=== PATIENT | female | born 1960 | race Caucasian/White ===

== ENCOUNTER 2018-11-17 17:20 | Emergency (ER) | payer BC ==
[2018-11-17] MEDS ORDERED: ONDANSETRON HCL IV 4 MG/2 ML VIAL IV ONE (17:35)
[2018-11-17] MEDS ORDERED: 0.9 % SODIUM CHLORIDE 1,000 ML BAG IV ONE (17:35)
[2018-11-17] MEDS ORDERED: SUCRALFATE 1 G/10 ML UD PO ONE (17:36)
--- NOTE | 2018-11-17 17:41 | Emergency Department Record ---
History of Present Illness - General Chief Complaint: Abdominal Pain Stated Complaint: ABD PAIN Time Seen by Provider: 11/17/18 17:28 Source: Patient Mode of Arrival: Ambulatory Limitations: No limitations - History of Present Illness Initial Comments: The patient is here due to abdominal pain for 4-5 days. The pain has been getting progressively worse over the course of the last few days. She describes it as a mid abdominal to epigastric sharp stabbing pain that is intermittent and does resolve at times. There is no nausea, vomiting, or fevers but the patient is having some loose stools at times. It does not seem to be related to eating or bending and the patient denies any alcohol use. She has had a Choly, APPY, and MONSE in the past. The patient did go to an UC yesterday and was told if worse to go to the ER. MD Complaint: Abdominal pain Onset/Timin -: Days(s) Location: Epigastric, Periumbilical Radiation: Back Severity: Mild Severity scale (1-10): 4 Quality: Sharp Consistency: Intermittent Improves With: Nothing Worsens With: Nothing Associated Symptoms: Denies other symptoms - Related Data Patient : No Home Medications Medication Instructions Recorded Confirmed Last Taken Cinnamon Bark [Cinnamon] 500 mg PO DAILY 11/17/18 11/17/18 11/17/18 Citalopram Hydrobromide [Celexa] 20 mg PO DAILY 11/17/18 11/17/18 11/17/18 Dicyclomine HCl 20 mg PO QID 11/17/18 11/17/18 11/17/18 Esomeprazole Magnesium 20 mg PO DAILY 11/17/18 11/17/18 11/17/18 Estradiol 1 mg PO DAILY 11/17/18 11/17/18 11/17/18 Previous Rx's Medication Instructions Recorded Sucralfate [Carafate] 1 gm PO QID #28 tablet 11/17/18 Allergies Allergy/AdvReac Type Severity Reaction Status Date / Time No Known Drug Allergies Allergy Verified 11/17/18 17:29 Travel Screening - Travel/Exposure Within Last 30 Days Have you traveled within the last 30 days?: No Review of Systems Constitutional: Denies: Chills, Fever Eyes: Denies: Eye discharge ENT: Denies: Congestion, Throat pain Respiratory: Denies: Dyspnea Cardiovascular: Denies: Chest pain Endocrine: Denies: Fatigue Gastrointestinal: Reports: Abdominal pain. Denies: Diarrhea, Nausea, Vomiting Genitourinary: Reports: Incontinence. Denies: Dysuria Musculoskeletal: Denies: Arthralgia, Back pain Neurological: Denies: Abnormal gait Past Medical History - SOCIAL HISTORY Smoking Status: Never smoker Alcohol Use: None Drug Use: None - RESPIRATORY Hx Respiratory Disorders: No - CARDIOVASCULAR Hx Cardio Disorders: No - NEURO Hx Neuro Disorders: No - GI Hx GI Disorders: Yes Hx Reflux: Yes - Hx Genitourinary Disorders: No - ENDOCRINE Hx Endocrine Disorders: No - MUSCULOSKELETAL Hx Musculoskeletal Disorders: No - PSYCH Hx Psych Problems: Yes Hx Anxiety: Yes Hx Depression: Yes - HEMATOLOGY/ONCOLOGY Hx Hematology/Oncology Disorders: No Family Medical History Any Significant Family History?: Yes Hx Diabetes: Mother Hx Heart Disease: Father Physical Exam - General General Appearance: Alert, Oriented x3, Cooperative, No acute distress - Head Head exam: Atraumatic, Normocephalic, Normal inspection - Eye Eye exam: Normal appearance, PERRL - ENT Throat exam: Normal inspection. negative: Tonsillar erythema, Tonsillar exudate - Neck Neck exam: Normal inspection, Full ROM. negative: Tenderness - Respiratory Respiratory exam: Normal lung sounds bilaterally. negative: Respiratory distress - Cardiovascular Cardiovascular Exam: Regular rate, Normal rhythm, Normal heart sounds - GI/Abdominal GI/Abdominal exam: Soft, Tenderness (Thee is mild mid abdominal tenderness to palpation. ). negative: Normal bowel sounds, Distended, Guarding, Rebound, Rigid - Extremities Extremities exam: Normal inspection, Full ROM, Normal capillary refill. negative: Tenderness - Back Back exam: Reports: Normal inspection - Neurological Neurological exam: Alert, Normal gait. negative: Abnormal gait, Motor sensory deficit Course Vital Signs 11/17/18 17:23 Temperature 98.0 F Pulse Rate 68 Respiratory 20 Rate Blood Pressure 166/99 Pulse Ox 97 - Reevaluation(s) Reevaluation #1: The patient is doing a lot better at this time. Her pain has resolved and she is resting comfortably. On exam her abdomen is very soft and nontender in all 4 quads. 11/17/18 18:30 Reevaluation #2: The patient is doing a lot better at this time. Her pain has mainly resolved and she has no nausea, vomiting, or diarrhea. On exam her abdomen is very soft and nontender in all 4 quads. I did discuss the need for an EGD due to possible Jejunitis on CT. We will refer the patient to GI and have her return for any worsening issues. 11/17/18 19:03 Medical Decision Making - Data Complexity MDM Data: Labs Ordered and/or Reviewed, X-Ray Ordered and/or Reviewed, EKG Ordered and/or Reviewed - Lab Data Result diagrams: 11/17/18 17:30 11/17/18 17:30 - EKG Data -: EKG Interpreted by Me EKG: No Acute Changes, Normal EKG - Radiology Data Radiology results: Report reviewed (Abd CT: Neg for diverticultis, Possible mild mesenteric adenitis or possible Jejunitis. ) Disposition Disposition: Discharge Clinical Impression: Abdominal pain Qualifiers: Abdominal location: unspecified location Qualified Code(s): R10.9 - Unspecified abdominal pain Disposition: Home, Self-Care Condition: (2) Stable Instructions: Abdominal Pain (ED) Additional Instructions: Please eat a very bland diet and make sure your are taking 40 mg of Nexium daily. Also take the Carafate as directed and please see Dr. Wise for recheck and the upper and lower GI's. Please also call the [place] office for an appointment to get in sooner. Return to the ER for any worsening pain, fever, vomiting, or bleeding in the vomit or stool. Prescriptions: Sucralfate [Carafate] 1 gm PO QID #28 tablet Referrals: [facility] Specialty Clinics [Provider Group] KAY WISE [DOCTOR OF OSTEOPATH] - Forms: Patient Portal Access Time of Disposition: 19:08 Quality - Quality Measures Quality Measures: N/A - Blood Pressure Screening View Details: Yes Does Patient Have Any of the Following: No Blood Pressure Classification: Hypertensive Reading Systolic Measurement: 166 Diastolic Measurement: 99 Screening for High Blood Pressure: < First Hypertensive BP, F/U Documented > [G8950] First Hypertensive Follow-up Interventions: Referral to alternative/primary care provider.
[2018-11-17 17:44] LABS: ABSOLUTE NEUTROPHIL COUNT 4.66; BASO % 0.7 % (0-6); EOS % 1.9 % (0-6); GRAN % 55.5 % (47-80); HEMATOCRIT 40.2 % (35.0-47.0); HEMOGLOBIN 13.2 gm/dl (11.6-16.0); MEAN CELL VOLUME 89.9 fl (81-97); MEAN CORPUSCULAR HEMOGLOBIN 29.5 pg (27-33); MEAN CORPUSCULAR HGB CONC 32.8 g/dl (32-36); MEAN PLATELET VOLUME 11.8 fl (7.4-10.4); MONO % 8.9 % (0-9); PLATELET COUNT 285 K/uL (130-400); RED BLOOD COUNT 4.47 M/uL (3.80-5.40); RED CELL DISTRIBUTION WIDTH 12.9 % (11.5-14.5); WHITE BLOOD COUNT W/O DIFF 8.4 K/uL (4.2-12.2)
[2018-11-17 17:58] LABS: BILIRUBIN,TOTAL < 0.20 mg/dL (0.2-1.0); BLOOD UREA NITROGEN 7 mg/dL (6-20); CREATININE 0.7 mg/dL (0.5-0.9); EST GLOMERULAR FILTRATION RATE > 60 mL/min; LIPASE 44 U/L (13-60); TOTAL PROTEIN 7.2 g/dL (6.6-8.7)
[2018-11-17 18:00] LABS: GLUCOSE,RANDOM 102 mg/dL (74-109)
[2018-11-17 18:03] LABS: ALBUMIN 4.6 g/dL (4.0-5.0); ALKALINE PHOSPHATASE 72 U/L (35-104); ALT/SGPT 17 U/L (<33); AST/SGOT 20 U/L (10.0-35.0)
[2018-11-17 18:16] LABS: BILIRUBIN,DIRECT < 0.2 mg/dL (0-0.3)
--- NOTE | 2018-11-20 10:21 | CT SCAN REPORT ---
DATE: 11/17/2018 at 6:14 p.m. EXAM: EMERGENCY CT OF THE ABDOMEN AND PELVIS WITHOUT CONTRAST. HISTORY: UPPER ABDOMINAL PAIN STARTED TWO WEEKS AGO. HYSTERECTOMY, CHOLECYSTECTOMY, APPENDECTOMY. TECHNIQUE: Axial CT scan of the abdomen and pelvis was performed without oral or intravenous contrast at the referring physician's request. COMPARISON: None. FINDINGS: Surgical clips in the gallbladder fossa consistent with cholecystectomy. The appendix is not identified, nor is the uterus consistent with the surgical history as well. No intrarenal calculi seen on the right. There are probably a couple of tiny, nonobstructing calculi in the left kidney. No hydronephrosis or hydroureter is seen on either side. As such, the ureters are difficult to follow in their nondilated state throughout the retroperitoneum and pelvis, but no definite ureteral calculus is seen on either side, and no bladder calculus evident. Evaluation of the bowel and viscera is extremely limited without oral or intravenous contrast. Given this limitation, no definite hepatic, splenic, adrenal, pancreatic, or renal mass identified. There is probably a small hiatal hernia present. Mild diverticulosis in the left side of the colon. No definite diverticulitis evident. Small umbilical hernia containing adipose tissue but no bowel. There is slight hazy, increased density in the mesentery of the left mid abdomen. This does not appear to be close to any colonic diverticula and is distant from the pancreas, and so it does not appear to be related to either a pancreatitis or diverticulitis. This may represent some localized mesenteritis, possibly a jejunitis. The jejunum itself is very poorly evaluated without oral and intravenous contrast. No free intraperitoneal air or free intraperitoneal fluid evident. Prominent facet joint arthropathy in the lower lumbar spine. Prominent spurring in the lower thoracic spine. IMPRESSION: 1. POSTOPERATIVE HYSTERECTOMY, CHOLECYSTECTOMY, AND APPENDECTOMY. 2. THERE ARE PROBABLY A COUPLE OF SMALL, NONOBSTRUCTING CALCULI IN THE LEFT KIDNEY. NO DEFINITE HYDRONEPHROSIS OR URETERAL CALCULUS SEEN. 3. SMALL HIATAL HERNIA AND SMALL UMBILICAL HERNIA CONTAINING ADIPOSE TISSUE BUT NO BOWEL. 4. SCATTERED DIVERTICULOSIS ON THE LEFT SIDE OF THE COLON BUT NO DEFINITE DIVERTICULITIS. 5. SOME HAZY DENSITY IN THE MESENTERY IN THE LEFT MID ABDOMEN MAY REPRESENT SOME MILD MESENTERIC ADENITIS OR JEJUNITIS. BOWEL VERY POORLY EVALUATED WITHOUT CONTRAST. 6. NO FREE AIR OR FREE FLUID EVIDENT. 7. DEGENERATIVE CHANGE IN THE SPINE. Job Number: [id number] MTDD
== END 2018-11-17 19:18 | disposition home or self-care (01) ==
LOC: ER 17:20
DX: R10.13 Epigastric pain (principal); R19.7 Diarrhea, unspecified
CPT/HCPCS: 74176; 80048; 80076; 83690; 85025; 93005; 93010; 96374; 99284; J2405; J7030

== ENCOUNTER 2019-06-26 10:25 | Day surgery (SDC) | payer BC ==
[2019-06-26] MEDS ORDERED: LIDOCAINE 2% MDV (20MG/ML) 20ML VIAL IV ONE (10:26)
[2019-06-26] MEDS ORDERED: PROPOFOL 10 MG/ML VIAL IV ONE (10:26)
--- NOTE | 2019-06-27 09:11 | Operative Note ---
OPERATION: COLONOSCOPY to the cecum with cold snare polypectomy x1. INDICATION: Colorectal cancer screening. This is the patient's first examination. ANESTHESIA: Intravenous sedation was administered by the department of anesthesiology and included Diprivan titrated to effect. PROCEDURE: Following informed consent from this alert individual including a discussion of the risks and benefits of the procedure and an opportunity for the patient to ask questions, the patient was in the left lateral decubitus position. A digital rectal examination was performed. No abnormalities were noted. Following this, the Olympus [id number] video colonoscope was inserted into the rectum without resistance. The rectal mucosa had a normal appearance with normal folds and distensibility. The colonoscope was advanced up through the remainder of the bowel to the level of the cecum without much difficulty. Throughout the bowel the mucosa appeared normal, the folds were normal, and the bowel was fairly well distensible. The cecum was defined by noting the appendiceal orifice and ileocecal valve. Overall, the colon preparation was good. From the base of the cecum, the colonoscope was the slowly withdrawn. In the descending colon, there was a sessile 5 mm polyp noted which was removed with cold snare polypectomy and suctioned through the colonoscope into a collection trap. In the sigmoid colon there were a few small diverticula noted. No other changes were appreciated. Retroflexion in the rectum was endoscopically normal. The endoscope was straightened and removed. The patient tolerated the procedure well and was returned to the recovery area in stable condition. IMPRESSION: 1. A 5 mm descending colon polyp removed with cold snare polypectomy. 2. Sigmoid diverticulosis, mild. RECOMMENDATIONS: The patient was advised she should receive a copy of her pathology report at home in the next 2-3 weeks. If not, she was asked to call my office to review the results of testing today. Further recommendations forthcoming pending those results. Followup will also be with Fredy Teague DO. As always, thank you for allowing me to participate in the care of your patient. LUCY
== END 2019-06-26 12:28 | disposition home or self-care (01) ==
LOC: HOP 10:25
PROVIDERS: ATTEND Internal Medicine Gastroenterology
DX: Z12.11 Encounter for screening for malignant neoplasm of colon (principal); D12.4 Benign neoplasm of descending colon; K57.30 Diverticulosis of large intestine without perforation or abscess without bleeding